=== PATIENT | female | born 1990 | race Caucasian/White ===

== ENCOUNTER 2019-12-08 07:28 | Inpatient (IN) | payer OTHER ==
[2019-12-08 08:29] VITALS: BMI 35.6
[2019-12-08 09:26] LABS: INR 0.96 (0.83-1.09); PROTHROMBIN TIME (PATIENT) 11.3 SEC (9.7-13.0)
[2019-12-08 09:27] LABS: BASO % 0.3 % (0-2.0); EOS % 0.4 % (0-4.5); HEMATOCRIT 37.5 % (32.4-45.2); HEMOGLOBIN 12.9 GM/dL (10.7-15.3); LYMPH % 14.9 % (8-40); MCH 30.8 pg (25.7-33.7); MCHC 34.4 g/dl (32.0-36.0); MEAN CELL VOLUME 89.6 fl (80-96); MEAN PLT VOLUME 10.9 fl (7.5-11.1); MONO % 7.6 % (3.8-10.2); NEUT % 76.8 % (42.8-82.8); PLATELET COUNT 160 K/MM3 (134-434); RBC 4.19 M/mm3 (3.60-5.2); RDW 12.8 % (11.6-15.6); WHITE BLOOD COUNT 8.3 K/mm3 (4.0-10.0)
[2019-12-08 09:28] LABS: ACTIVATED PTT 27.8 SECONDS (25.2-36.5)
[2019-12-08 09:42] LABS: BLOOD UREA NITROGEN 5.5 mg/dL (7-18); CALCIUM 8.5 mg/dL (8.5-10.1); CREATININE 0.5 mg/dL (0.55-1.3); POTASSIUM 3.8 mmol/L (3.5-5.1)
[2019-12-08] MEDS ORDERED: PHENYLEPHRINE HCL 10 MG/1 ML SINGLE DOSE VIAL ONE (09:56)
[2019-12-08] MEDS ORDERED: morphine SULFATE/PF 0.5 MG/ML (2cc Syringe - QUVA) ONE (09:57)
[2019-12-08] MEDS ORDERED: SUCCINYLCHOLINE CHLORIDE 200 MG/10 ML SYRINGE ONE (09:57)
[2019-12-08] MEDS ORDERED: PROPOFOL 20 ML ONE (09:57)
--- NOTE | 2019-12-08 10:05 | HP ---
Past Medical History - Admission Chief Complaint: Repeat Csection History Source: Patient - Past Medical History ...: 3 ...Para: 1 ...Term: 0 ...: 1 ...Spon : 1 ...Induced : 0 ...Living Children: 1 ...Multiple Gestation: 0 ...EDC by Kyreeo: 12/15/19 - Past Surgical History Past Surgical History: Yes: Hx Myomectomy: No Hx Transabdominal Cerclage: No - Smoking History Smoking history: Never smoked Have you smoked in the past 12 months: No - Alcohol/Substance Use Hx Alcohol Use: No - Social History History of Recent Travel: No Home Medications - Allergies Allergies/Adverse Reactions: Allergies Allergy/AdvReac Type Severity Reaction Status Date / Time No Known Allergies Allergy Verified 11/05/19 23:41 - Home Medications Home Medications: Ambulatory Orders Ferrous Sulfate [Feosol] 325 mg PO DAILY 12/08/19 Vitamins (Sjr) - 1 tab PO DAILY 12/08/19 Review of Systems - Review of Systems Constitutional: reports: No Symptoms Cardiovascular: reports: No Symptoms Respiratory: reports: No Symptoms Gastrointestinal: reports: No Symptoms Genitourinary: reports: No Symptoms Physical Exam - Maternity Vital Signs: Vital Signs Temperature 98.5 F 12/08/19 08:05 Pulse Rate 88 12/08/19 08:05 Respiratory Rate 18 12/08/19 08:05 Blood Pressure 124/77 12/08/19 08:05 O2 Sat by Pulse Oximetry (%) Constitutional: Yes: Well Nourished Cardiovascular: Yes: WNL Lungs: Clear to auscultation - Abdominal Exam/OB Fundal Height: 39 Number of Fetuses: Single Presentation: Vertex - Labs Lab Results: CBC, BMP 12/08/19 08:40 12/08/19 08:40 Hemorrhage Risk Assessment - Risk Factors Medium Risk Factors: Yes: None High Risk Factors: Yes: None Risk Score: 1 Risk Level: Medium Risk Problem List - Problems (1) 39 weeks gestation of Code(s): Z3A.39 - 39 WEEKS GESTATION OF Assessment/Plan 29yo @ 39W0D, PREVIOUS CSECTION, FOR SCHEDULED REPEAT CSECTION, rh NEGATIVE ADMIT LABS INFORMED CONSENT Prepare for csection
--- NOTE | 2019-12-08 11:49 | OP ---
Operative Note - Note: Operative Date: 12/08/19 Pre-Operative Diagnosis: IUP@ 39w0d, previous csection Operation: Repeat LTCS Findings: Baby girl Nuchal cord x1 9 and 9 3.-vicrl stches placed on oozing sites on anterior wall, sugicell domenico doug,Hemostasis confirmed Post-Operative Diagnosis: Same as Pre-op Surgeon: Nikki Caldwell Printing Agent: Jarod Mejia Anesthesia: Spinal Estimated Blood Loss (mls): 800 Operative Report Dictated: Yes
[2019-12-08] MEDS ORDERED: OXYTOCIN 20 UNITS in 0.9% NS 20 UNIT/1,000 ML INFUS.BAG IV ONE ×2 (11:58→15:33)
[2019-12-08 12:19] LABS: CORD BASE EXCESS -1.7 mmol/L (0-2); CORD HCO3 24.2 mmHg (20-29); CORD PCO2 45.3 mmHg (30-78); CORD pH 7.346 (7.14-7.44)
[2019-12-08 12:30] LABS: CORD HCO3 26.3 mmHg (20-29); CORD PCO2 59.1 mmHg (30-78); CORD pH 7.266 (7.14-7.44)
[2019-12-08] MEDS ORDERED: ACETAMINOPHEN 325 MG TABLET (FP) PO ONE (12:30)
[2019-12-08] MEDS ORDERED: oxyCODONE HCL 5 MG TABLET PO ONE (12:30)
[2019-12-08] MEDS ORDERED: ACETAMINOPHEN INJECTION 100 ML IVPB ONE (13:06)
[2019-12-08] MEDS ORDERED: OXYTOCIN 20 UNITS in 0.9% NS 1000 ML INFUS.BAG IV ONE (13:35)
[2019-12-08] MEDS ORDERED: ACETAMINOPHEN 1000 MG/100 ML VIAL (NON FORMULARY) IVPB ONE (13:35)
[2019-12-08] MEDS ORDERED: MISOPROSTOL 200 MCG TABLET PV ONE (13:37)
--- NOTE | 2019-12-08 13:44 | PN ---
Progress Note (short form) - Note Progress Note: Called by Nurse for Moderate amount for bright red blood per vagina and some clots. Uterus firm no clots in the vagina,mild bleeding cytotec 1000mcg placed per rectum Patient observed no active bleeding close monitoring, Nurse aware. Reevaluate Problem List - Problems (1) 39 weeks gestation of Code(s): Z3A.39 - 39 WEEKS GESTATION OF
[2019-12-08] MEDS: METHYLERGONOVINE MALEATE 0.2 MG/1 ML AMP IM PRN ×2 (14:10→23:14)
[2019-12-08] MEDS ORDERED: CARBOPROST TROMETHAMINE 250 MCG/ML AMPUL IM ONE (15:07)
--- NOTE | 2019-12-08 16:21 | PN ---
Progress Note (short form) - Note Progress Note: Patiemt asymptomatic, Evaluated at bedside Uterus firm Normal lochial flow continue PO methergin q 6hrs for 24 hrs Problem List - Problems (1) 39 weeks gestation of Code(s): Z3A.39 - 39 WEEKS GESTATION OF
[2019-12-08] MEDS: CEFAZOLIN 1 GM/D5W 1 GM/50 ML BAG IVPB SCH (17:39)
[2019-12-08] MEDS ORDERED: METHYLERGONOVINE MALEATE 0.2 MG TABLET (FP) PO SCH (18:00)
[2019-12-08] MEDS: ACETAMINOPHEN 1000 MG/100 ML VIAL (NON FORMULARY) IVPB PRN (20:17)
[2019-12-08 21:39] LABS: BASO % 0.1 % (0-2.0); EOS % 0.3 % (0-4.5); HEMATOCRIT 35.6 % (32.4-45.2); LYMPH % 7.4 % (8-40); MCH 30.8 pg (25.7-33.7); MCHC 33.8 g/dl (32.0-36.0); MEAN CELL VOLUME 91.3 fl (80-96); MEAN PLT VOLUME 10.5 fl (7.5-11.1); MONO % 6.6 % (3.8-10.2); NEUT % 85.6 % (42.8-82.8); PLATELET COUNT 157 K/MM3 (134-434); RBC 3.91 M/mm3 (3.60-5.2); WHITE BLOOD COUNT 11.7 K/mm3 (4.0-10.0)
[2019-12-08] MEDS ORDERED: MEPERIDINE HCL 50 MG/ML VIAL IM ONE (22:45)
[2019-12-08] MEDS ORDERED: PROMETHAZINE HCL 25 MG/1 ML VIAL IM ONE (22:45)
[2019-12-08] MEDS: METHYLERGONOVINE MALEATE 0.2 MG TABLET (FP) PO SCH (23:14)
--- NOTE | 2019-12-08 23:14 | PN ---
Progress Note (short form) - Note Progress Note: Asked to see this patient, since nurse noted excessive VB VSS h/h stable Exam c/w clot in cervix and lower uterine segment After giving Demerol/Phenergan Patient was expressed ~ 200cc of clotted blood, possibly small membrane lower uterine segment contracted Will give 1 dose Methergine IM continue observing VB
[2019-12-09] MEDS: CEFAZOLIN 1 GM/D5W 1 GM/50 ML BAG IVPB SCH ×3 (01:25→19:01)
[2019-12-09] MEDS ORDERED: TRANEXAMIC ACID 1000 MG/10 ML VIAL IVPB ONE (01:30)
--- NOTE | 2019-12-09 01:40 | PN ---
Progress Note (short form) - Note Progress Note: Patient without complaints,says bleeding is minimal VS -afebrile,P-78, BP- 118/82 Abdomen soft Uterus well contracted minimal bleeding Hb- 12.0 continue methergin po Tranaxemic acid 1gm ivpb x1 close observation continue ancef Problem List - Problems (1) 39 weeks gestation of Code(s): Z3A.39 - 39 WEEKS GESTATION OF
[2019-12-09] MEDS: METHYLERGONOVINE MALEATE 0.2 MG TABLET (FP) PO SCH ×2 (02:55→06:40)
[2019-12-09] MEDS: ACETAMINOPHEN 1000 MG/100 ML VIAL (NON FORMULARY) IVPB PRN (08:23)
--- NOTE | 2019-12-09 08:39 | PN ---
Progress Note (short form) - Note Progress Note: Patient without complaints minimal lochial flow cbc pending vs wnl Abdomen soft,bowel sounds present, improving uterus well contracted minimal lochia no calf tenderness A/P- POD#1 ambulate clear liquids cbc pending Problem List - Problems (1) 39 weeks gestation of Code(s): Z3A.39 - 39 WEEKS GESTATION OF
--- NOTE | 2019-12-09 08:45 | OP ---
DATE OF OPERATION: DATE OF DICTATION: 12/08/2019 PREOPERATIVE DIAGNOSES: 1. Intrauterine at 39 weeks and 2 days. 2. Previous section. POSTOPERATIVE DIAGNOSES: 1. Intrauterine at 39 weeks and 2 days. 2. Previous section. PROCEDURE: Repeat low transverse section via Pfannenstiel skin incision. SURGEON: Nikki Caldwell MD COOLER CONVEYOR LOADER: GABRIELLE Grady ANESTHESIA: Spinal. COMPLICATIONS: None. ESTIMATED BLOOD LOSS: 800 mL. INDICATION: A 29-year-old patient with 1 previous presented to labor and delivery for scheduled repeat . FINDINGS: Baby girl in cephalic presentation, 9/9, nuchal cord x1. PROCEDURE: After informed consent and explaining the risks, benefits and alternative to the patient, patient taken to the operating room. She was prepped and draped in a normal sterile fashion in the dorsal supine position with a leftward tilt. A Pfannenstiel skin incision was made with the scalpel and the scar tissue was removed. The fascia was then incised in the midline and incision extended to the fascia. Fascia was then incised in the midline and incision extended. The superior aspect of the fascial incision was grasped with Rosemarie clamp, elevated and from the underlying rectus muscles. Attention was then turned towards the inferior aspect of the incision which in a similar fashion was tented up and from the underlying rectus muscles. Rectus muscle was then dissected in the midline, peritoneum identified and entered with careful visualization of the bladder and bowel. Incision was then extended superiorly and inferiorly. Lower uterine segment was extremely thinned out. Incision was made in the lower uterine segment and this was extended laterally. Baby was in cephalic presentation with nuchal cord x1 which was reduced over the head. Baby was delivered atraumatically. Nose and mouth suctioned. Cord was clamped and cut. Baby was handed over to waiting payroll accounting specialist. Cord gases were sent and cord blood was sent. Placenta was then removed manually. Uterus was exteriorized and cleared of all clots and debris. Lower uterine segment was thinned out. Extra 10 units of Pitocin was added in the bag. The uterus was cleared of all clots and debris. The uterus was then closed in layers with 0 Vicryl. Excellent hemostasis was confirmed and uterus was firm. At this point uterus was returned back into the . There were 2 small rents just above on the anterior surface of the uterus and a figure-of-8 stitch was placed with 2-0 Vicryl, excellent hemostasis confirmed and Surgicel was placed. Uterus was firm. No bleeding noticed. At this point we proceeded towards closing the abdomen. The rectus muscle and the peritoneum were closed with 2-0 Vicryl with interrupted stitches. Excellent hemostasis was confirmed throughout the procedure. Fascia was then reapproximated with 1 Vicryl in a running fashion. Excellent hemostasis was confirmed all throughout the procedure. Subcutaneous tissue was irrigated and closed with 2-0 plain. Per patient's request skin was closed with 3-0 Vicryl. Patient tolerated the procedure well. Sponge, lap and needle counts were correct x2 and patient was transferred to recovery room in stable condition. Ancef 2 g was given prior to surgery and will be continued for 24 hours q.8 hours. MD CHRISTI RAMOS/[id number]
[2019-12-09 09:08] LABS: BASO % 0.1 % (0-2.0); EOS % 0.3 % (0-4.5); HEMATOCRIT 34.4 % (32.4-45.2); HEMOGLOBIN 11.7 GM/dL (10.7-15.3); MCHC 33.8 g/dl (32.0-36.0); MEAN CELL VOLUME 91.7 fl (80-96); MEAN PLT VOLUME 11.2 fl (7.5-11.1); MONO % 5.4 % (3.8-10.2); NEUT % 89.2 % (42.8-82.8); PLATELET COUNT 156 K/MM3 (134-434); RBC 3.76 M/mm3 (3.60-5.2); WHITE BLOOD COUNT 11.4 K/mm3 (4.0-10.0)
[2019-12-09] MEDS: PRENATAL VITAMINS W/ FOLIC ACID TABLET (FP) PO SCH (09:59)
--- NOTE | 2019-12-09 10:05 | PN ---
Progress Note (short form) - Note Progress Note: Anesthesia postop note POD#1, S/P repeat under spinal. VSS. Ambulating. Pain under control. No apparent post anesthesia complications.
[2019-12-09] MEDS ORDERED: BISACODYL 10 MG SUPP.RECT RC PRN (11:51)
[2019-12-09] MEDS: IBUPROFEN 600 MG TABLET (FP) PO PRN ×2 (14:26→20:52)
[2019-12-09] MEDS ORDERED: CEFAZOLIN 1 GM/D5W 1 GM/50 ML BAG IVPB SCH (18:45)
[2019-12-09] MEDS: SIMETHICONE 80 MG TAB.CHEW (FP) PO PRN (20:51)
[2019-12-10] MEDS: IBUPROFEN 600 MG TABLET (FP) PO PRN (09:15)
[2019-12-10] MEDS: SIMETHICONE 80 MG TAB.CHEW (FP) PO PRN (09:16)
[2019-12-10] MEDS: PRENATAL VITAMINS W/ FOLIC ACID TABLET (FP) PO SCH (09:16)
[2019-12-10 11:22] VITALS: BP 110/71; PULSE 84; TEMP 98.3
--- NOTE | 2019-12-10 14:37 | PN ---
Post Progress Note Post Day: 2 Type of Delivery: Repeat C/S Vital Signs: Vital Signs Temperature 98.3 F 12/10/19 09:00 Pulse Rate 84 12/10/19 09:00 Respiratory Rate 20 12/10/19 09:00 Blood Pressure 110/71 12/10/19 09:00 O2 Sat by Pulse Oximetry (%) 100 12/08/19 16:15 Breast Exam: Yes: Soft Uterus: Yes: Fundus Firm, Fundus below umbilicus, Non-tender Incision: Yes: Dressing dry and intact Abdomen/GI: Yes: Abdomen soft, Tolerating PO Lochia: Yes: Rubra Lochia, amount: Small Extremities: Yes: Calves non-tender Perineum: Yes: Intact Activity: Ambulating - Labs Labs: CBC WBC 11.4 K/mm3 (4.0-10.0) H 12/09/19 08:10 RBC 3.76 M/mm3 (3.60-5.2) 12/09/19 08:10 Hgb 11.7 GM/dL (10.7-15.3) 12/09/19 08:10 Hct 34.4 % (32.4-45.2) 12/09/19 08:10 MCV 91.7 fl (80-96) 12/09/19 08:10 MCH 31.0 pg (25.7-33.7) 12/09/19 08:10 MCHC 33.8 g/dl (32.0-36.0) 12/09/19 08:10 RDW 13.0 % (11.6-15.6) 12/09/19 08:10 Plt Count 156 K/MM3 (134-434) 12/09/19 08:10 MPV 11.2 fl (7.5-11.1) H 12/09/19 08:10 Absolute Neuts (auto) 10.2 K/mm3 (1.5-8.0) H 12/09/19 08:10 Neutrophils % 89.2 % (42.8-82.8) H 12/09/19 08:10 Lymphocytes % 5.0 % (8-40) L D 12/09/19 08:10 Monocytes % 5.4 % (3.8-10.2) 12/09/19 08:10 Eosinophils % 0.3 % (0-4.5) 12/09/19 08:10 Basophils % 0.1 % (0-2.0) 12/09/19 08:10 Nucleated RBC % 0 % (0-0) 12/09/19 08:10 Assessment/Plan S/P delivery, pod # 2, stable Discharge home today.
--- NOTE | 2019-12-10 14:41 | DS ---
Physical Exam-STOCK SUPERVISOR Vital Signs: Vital Signs Temperature 98.3 F 12/10/19 09:00 Pulse Rate 84 12/10/19 09:00 Respiratory Rate 20 12/10/19 09:00 Blood Pressure 110/71 12/10/19 09:00 O2 Sat by Pulse Oximetry (%) 100 12/08/19 16:15 Constitutional: Yes: Well Nourished Eyes: Yes: WNL HENT: Yes: WNL Neck: Yes: WNL Cardiovascular: Yes: WNL Respiratory: Yes: WNL Gastrointestinal: Yes: WNL Renal/: Yes: WNL Pelvis: Yes: WNL Vaginal Exam: Yes: Normal Cervix: Yes: Normal Uterus: Yes: Normal Adnexa: Normal: Bilateral ....Post : Yes: Uterus firm, Uterus non-tender, Slight lochia rubra Breast(s): Yes: WNL Musculoskeletal: Yes: WNL Extremities: Yes: WNL Edema: No Integumentary: Yes: WNL Wound/Incision: Yes: Clean/Dry, Steri Strips Neurological: Yes: WNL ...Motor Strength: WNL Psychiatric: Yes: WNL Labs: CBC, BMP 12/09/19 08:10 12/08/19 08:40 Delivery - Delivery Section: Repeat Type of Anesthesia: Spinal Episiotomy/Laceration: None EBL (cc): 700 Delivery, Single - Stages of Labor Date of Delivery: 12/08/19 Time of Delivery: 10:31 Time Placenta Delivered: 10:32 - Condition of Infant Assistant Product Manager/Radar Air Traffic Controller Present: Yes Name: Letha Jenkins Gender: Female Weight: 3.374 kg Position: Left, OT Total Hours ROM (Hrs/Mins): 0hrs 2min - 1 Minute Total Score: 9 5 Minutes Total Score: 9 - Feeding Plan Initial Plan: Elected not to breastfeed exclusively throughout hospitalization Discharge Summary Problems reviewed: Yes Reason For Visit: C SECTION Current Active Problems 39 weeks gestation of (Acute) Condition: Stable - Instructions Disposition: HOME - Home Medications Comprehensive Discharge Medication List: Ambulatory Orders Ferrous Sulfate [Feosol] 325 mg PO DAILY 12/08/19 Vitamins (Sjr) - 1 tab PO DAILY 12/08/19
--- NOTE | 2019-12-11 17:37 | PATH ---
Surgical Pathology Report Patient Name: TOI BELL Med. Rec. #: [id number] /Age/Gender: 1990 (Age: 29) / F Account: [id number] Location: [facility] OBS/ORACLE SCM CONSULTANT Taken: 12/08/2019 Received: 12/09/2019 Reported: 12/11/2019 Physicians: Nikki Caldwell M.D. Specimen(s) Received PLACENTA Clinical History , history of anemia, migraines, chlamydia, UTI-Tx 08/2019, BV Tx 09/2019, history of PTL and delivery Final Diagnosis PLACENTA: THIRD TRIMESTER PLACENTA WITH PERIVILLOUS FIBRIN DEPOSITION. TRIVASCULAR CORD. MEMBRANES WITH NO DIAGNOSTIC ABNORMALITIES. Electronically Signed Saida Abraham M.D. Gross Description The specimen is received fresh labeled placenta and is a 588 gram, 17.0 x 12.5 x 3.8 cm. placenta with attached membranes and umbilical cord. The attached membranes are johnson, translucent with focal opacities and insert marginally. The umbilical cord measures 22 cm. in length and averages 1.2 cm. in diameter. The cord inserts eccentrically, 2 cm. to the nearest margin. No true knots or strictures are identified. Cut surface of the umbilical cord reveals 3 vessels. The surface is conte-blue with minimal fibrin deposition and appropriate caliber vessels. The maternal surface is red-brown with focal defects. Sectioning reveals red-brown, spongy parenchyma. No lesions are identified. Astro Technician sections are submitted in three cassettes as follows: 1- membrane rolls and umbilical cord; 2-3- full thickness sections of placenta. /12/09/2019 [facility]/12/09/2019
== END 2019-12-10 16:30 | disposition home or self-care (01) | DRG 540 ==
LOC: JLDR 07:28 → J3W 16:30
PROVIDERS: ADMIT Obstetrics & Gynecology; ATTEND Obstetrics & Gynecology
PROC: 10D00Z1 Extraction of Products of Conception, Low, Open Approach (ICD-10-PCS; principal; 2019-12-08)
PROC: 3E0334Z Introduction of Serum, Toxoid and Vaccine into Peripheral Vein, Percutaneous Approach (ICD-10-PCS; 2019-12-09)
DX: O34.211 Maternal care for low transverse scar from previous cesarean delivery (principal); N85.8 Other specified noninflammatory disorders of uterus; Z3A.39 39 weeks gestation of pregnancy; Z29.13 Encounter for prophylactic Rho(D) immune globulin; Z37.0 Single live birth
CPT/HCPCS: 36415; 36600; 80048; 82803; 85025; 85461; 85610; 85730; 86780; 86850; 86900; 86901; 86999; 87389; 88307-TC; J0131; J2175

== ENCOUNTER 2023-05-10 09:12 | Emergency (ER) | payer OTHER ==
[2023-05-10 11:18] LABS: POTASSIUM 4.2 mmol/L (3.5-5.1)
[2023-05-10 11:20] LABS: CALCIUM 8.8 mg/dL (8.5-10.1)
[2023-05-10 11:21] LABS: ALBUMIN 3.8 g/dl (3.4-5.0); BLOOD UREA NITROGEN 9.8 mg/dL (7-18)
[2023-05-10 11:24] LABS: CREATININE 0.7 mg/dL (0.55-1.3)
[2023-05-10 11:25] LABS: BILIRUBIN,TOTAL 0.2 mg/dL (0.2-1); TOT PROT 7.7 g/dl (6.4-8.2)
[2023-05-10 11:36] LABS: BASO % 0.9 % (0-2.0); EOS % 1.8 % (0-4.5); HEMATOCRIT 34.6 % (32.4-45.2); HEMOGLOBIN 10.4 GM/dL (10.7-15.3); LYMPH % 23.3 % (8-40); MCHC 30.2 g/dl (32.0-36.0); MEAN PLT VOLUME 8.9 fl (7.5-11.1); MONO % 8.6 % (3.8-10.2); NEUT % 65.4 % (42.8-82.8); PLATELET COUNT 292 10^3/uL (134-434); RBC 5.48 M/mm3 (3.60-5.2); RDW 23.9 % (11.6-15.6); WHITE BLOOD COUNT 3.9 K/mm3 (4.0-10.0)
[2023-05-10 11:38] VITALS: BP 116/81; PULSE 82; RESP 17; TEMP 98.9; BMI 33.5
[2023-05-10 12:36] LABS: ANISOCYTOSIS 2+; MACROCYTOSIS 0; OVALOCYTE 1+
== END 2023-05-10 13:10 | disposition home or self-care (01) ==
LOC: JERFT 09:12
DX: R05.9 Cough, unspecified (principal); R42 Dizziness and giddiness; N93.9 Abnormal uterine and vaginal bleeding, unspecified
CPT/HCPCS: 36415; 71046-TC-FY; 80053; 84703; 85025; 99284-25

== ENCOUNTER 2024-05-12 10:24 | Observation (INO) | payer OTHER ==
[2024-05-12 12:48] LABS: BASO % 0.6 % (0-2.0); EOS % 0.8 % (0-4.5); HEMATOCRIT 27.1 % (32.4-45.2); HEMOGLOBIN 7.8 GM/dL (10.7-15.3); LYMPH % 31.7 % (8-40); MCHC 28.7 g/dl (32.0-36.0); MEAN CELL VOLUME 59.3 fl (80-96); MEAN PLT VOLUME 8.6 fl (7.5-11.1); MONO % 8.2 % (3.8-10.2); NEUT % 58.7 % (42.8-82.8); PLATELET COUNT 364 10^3/uL (134-434); RBC 4.57 M/mm3 (3.60-5.2); RDW 19.9 % (11.6-15.6)
[2024-05-12 12:52] LABS: INR 1.07 (0.83-1.09); PROTHROMBIN TIME (PATIENT) 12.3 SEC (9.7-13.0)
[2024-05-12 12:55] LABS: ACTIVATED PTT 27.7 SECONDS (25.2-36.5)
[2024-05-12 13:00] LABS: POTASSIUM 4.1 mmol/L (3.5-5.1)
[2024-05-12 13:02] LABS: ALBUMIN 3.9 g/dl (3.4-5.0); BLOOD UREA NITROGEN 12.2 mg/dL (7-18); CALCIUM 8.9 mg/dL (8.5-10.1)
[2024-05-12 13:06] LABS: CREATININE 0.9 mg/dL (0.55-1.3)
[2024-05-12 13:07] LABS: BILIRUBIN,TOTAL 0.2 mg/dL (0.2-1); TOT PROT 7.8 g/dl (6.4-8.2)
[2024-05-12 13:53] LABS: ANISOCYTOSIS 2+; MACROCYTOSIS 1+; TARGET CELLS 1+
[2024-05-12 14:04] LABS: PH,URINE 6.5 (5.0-8.0); URINE APPEARANCE Clear; URINE BILIRUBIN Negative (NEGATIVE); URINE COLOR Yellow; URINE GLUCOSE (UA) Negative (NEGATIVE); URINE KETONE Negative (NEGATIVE); URINE LEUK ESTERASE Negative (NEGATIVE); URINE NITRITE Negative (NEGATIVE); URINE PROTEIN 1+ (NEGATIVE); URINE UROBILINOGEN 0.2 mg/dL (0.2-1.0)
[2024-05-12 14:06] LABS: EPI CELLS 3.7 /uL (0-25.1); HYALINE CASTS 0 /uL (0-3.1); URINE BACTERIA 6.6 /uL (0-1359); URINE RBC 7538 /uL (0-23.9); URINE WBC 20 /uL (0-25.8)
[2024-05-12 14:10] LABS: HCG,QUALITATIVE URINE Negative
[2024-05-12] MEDS: IRON SUCROSE INJECTION 100 MG in SODIUM CHLORIDE 95 ML IVPB ONE (17:27)
[2024-05-12 17:31] LABS: BASO % 0.5 % (0-2.0); EOS % 1.3 % (0-4.5); LYMPH % 33.6 % (8-40); MONO % 6.4 % (3.8-10.2); NEUT % 58.2 % (42.8-82.8); RBC 4.45 M/mm3 (3.60-5.2); WHITE BLOOD COUNT 4.4 K/mm3 (4.0-10.0)
[2024-05-12 17:32] LABS: HEMATOCRIT 26.6 % (32.4-45.2); HEMOGLOBIN 7.6 GM/dL (10.7-15.3); MCH 16.9 pg (25.7-33.7); MCHC 28.5 g/dl (32.0-36.0); MEAN CELL VOLUME 59.4 fl (80-96); MEAN PLT VOLUME 8.5 fl (7.5-11.1); PLATELET COUNT 381 10^3/uL (134-434); RDW 19.9 % (11.6-15.6)
[2024-05-12 17:33] LABS: ADD RBC MORPHOLOGY YES
[2024-05-12 18:33] LABS: PLATELET ESTIMATE ADEQUATE
[2024-05-12 20:49] VITALS: BMI 31.4
[2024-05-12 20:57] LABS: BASO % 0.8 % (0-2.0); EOS % 1.1 % (0-4.5); HEMATOCRIT 25.4 % (32.4-45.2); HEMOGLOBIN 7.3 GM/dL (10.7-15.3); LYMPH % 33.1 % (8-40); MCHC 28.7 g/dl (32.0-36.0); MEAN CELL VOLUME 58.9 fl (80-96); MEAN PLT VOLUME 8.6 fl (7.5-11.1); MONO % 7.1 % (3.8-10.2); NEUT % 57.9 % (42.8-82.8); PLATELET COUNT 377 10^3/uL (134-434); RBC 4.32 M/mm3 (3.60-5.2)
[2024-05-12 20:59] LABS: MCH 16.9 pg (25.7-33.7)
[2024-05-12] MEDS: MELATONIN 5 MG TABLETS PO PRN (22:22)
[2024-05-13 01:16] VITALS: RESP 18
[2024-05-13 08:52] LABS: BASO % 0.5 % (0-2.0); EOS % 0.9 % (0-4.5); HEMATOCRIT 26.6 % (32.4-45.2); HEMOGLOBIN 7.6 GM/dL (10.7-15.3); LYMPH % 31.7 % (8-40); MCHC 28.4 g/dl (32.0-36.0); MEAN CELL VOLUME 59.2 fl (80-96); MEAN PLT VOLUME 8.6 fl (7.5-11.1); MONO % 5.6 % (3.8-10.2); NEUT % 61.3 % (42.8-82.8); PLATELET COUNT 341 10^3/uL (134-434); RDW 20.7 % (11.6-15.6); WHITE BLOOD COUNT 3.4 K/mm3 (4.0-10.0)
[2024-05-13 08:59] LABS: POTASSIUM 3.9 mmol/L (3.5-5.1)
[2024-05-13 09:02] LABS: CALCIUM 8.7 mg/dL (8.5-10.1)
[2024-05-13 09:03] LABS: BLOOD UREA NITROGEN 7.5 mg/dL (7-18)
[2024-05-13 09:05] LABS: MCH 16.8 pg (25.7-33.7)
[2024-05-13 09:06] LABS: CREATININE 0.6 mg/dL (0.55-1.3)
[2024-05-13] MEDS: ACETAMINOPHEN 325 MG TABLET (FP) PO PRN (09:13)
[2024-05-13] MEDS: IRON SUCROSE INJECTION 100 MG in SODIUM CHLORIDE 95 ML IVPB ONE (09:15)
[2024-05-13 10:25] VITALS: BP 121/80; PULSE 92; TEMP 99
== END 2024-05-13 12:06 | disposition home or self-care (01) ==
LOC: JER 10:24 → JERBED 14:44 → J7W 19:21
PROVIDERS: ADMIT Internal Medicine; ATTEND Registered Nurse
PROC: 3E033GC Introduction of Other Therapeutic Substance into Peripheral Vein, Percutaneous Approach (ICD-10-PCS; principal; 2024-05-12)
DX: D64.9 Anemia, unspecified (principal); N93.9 Abnormal uterine and vaginal bleeding, unspecified; D62 Acute posthemorrhagic anemia
CPT/HCPCS: 36415; 76830-TC; 80048; 80053; 81003; 84703; 85025; 85610; 85730; 86850; 86900; 86901; 87086; 93005; 93010; 96365; 96366; 99285-25; G0378; J1756